=== PATIENT | female | born 1965 | race Caucasian/White ===

== ENCOUNTER 2019-09-23 14:10 | Emergency (ER) | payer OTHER ==
[~2019-09-23] VITALS: Ht 172.7 cm; Wt 86.1 kg
[2019-09-23] MEDS ORDERED: ONDANSETRON 4 MG/2 ML (SDV) Z0FRAN IVP ONE (15:30)
[2019-09-23] MEDS ORDERED: NS IV 1000 ML 1,000 ML IV SCH (15:30)
--- NOTE | 2019-09-23 15:33 | ED GI ---
General Chief Complaint: Abdominal/GI Problems Stated Complaint: NAUSEA;L UPPER QUAD PAIN Nursing Triage Note: Pt reports vomiting and diarrhea that began on . Vomiting and diarrhea lasted for approximately 24 hours. Pt reports then having LUQ pain on Monday. Pt reports not eating or drinking on Monday. Pt then tried bland diet on Monday and anything eaten caused stomach distention. Pt reports chalk colored stools and worsening LUQ pain. Pt reports being seen by Octavio at [facility] today and was given a liter of fluids and possibly phenergan. Pt arrived to ED with 18 g IV in R forearm. Sepsis Screen: No Definite Risk Source of Information: Patient Exam Limitations: No Limitations History of Present Illness Date Seen by Provider: Sep 23, 2019 Time Seen by Provider: 15:29 Initial Comments To ER with diarrhea and vomiting that began on . She was taking Wellbutrin XL for anxiety but didn't want to worsen her nausea so she stopped that cold turkey on hasn't had any since. She reports left upper quadrant pain worsened by eating or drinking anything. No fevers or chills. She had 1 day of diarrhea on that has subsided since then. She denies any reflux sensations denies any chest pain or shortness of breath. 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 Timing/Duration: 3-4 Days Severity/Quality: Moderate Location: LUQ Radiation: No Radiation Activities at Onset: None Associated Symptoms: Nausea/Vomiting Allergies and Home Medications Allergies Coded Allergies: Penicillins (Verified Allergy, Unknown, Hives, 09/23/19) Patient Home Medication List Home Medication List Reviewed: Yes Review of Systems Review of Systems Constitutional: see HPI EENTM: No Symptoms Reported Respiratory: No Symptoms Reported Cardiovascular: No Symptoms Reported Gastrointestinal: See HPI, Abdominal Pain, Nausea Genitourinary: No Symptoms Reported Musculoskeletal: no symptoms reported Skin: no symptoms reported Psychiatric/Neurological: No Symptoms Reported Endocrine: No Symptoms Reported Hematologic/Lymphatic: No Symptoms Reported Past Qpstoft-Qwvvze-Xcbnww Hx Patient Social History Alcohol Use: Occasionally Uses Recreational Drug Use: No Smoking Status: Former Smoker 2nd Hand Smoke Exposure: No Recent Foreign Travel: No Contact w/Someone Who Travel: No Recent Infectious Disease Expo: No Recent Hopitalizations: No Seasonal Allergies Seasonal Allergies: No Past Medical History Surgeries: Yes Section, Tonsillectomy Respiratory: Yes (reactive airway disease) Pulmonary Embolism Cardiac: Yes Deep Vein Thrombosis Neurological: No Genitourinary: No Gastrointestinal: No Musculoskeletal: No Endocrine: No HEENT: No Cancer: No Psychosocial: No Integumentary: No Blood Disorders: No Physical Exam Vital Signs Vital Signs - First Documented 09/23/19 14:32 Temp 36.3 Pulse 73 Resp 14 B/P (MAP) 125/90 (102) Pulse Ox 97 O2 Delivery Room Air Capillary Refill : Less Than 3 Seconds Height/Weight/BMI Height: '" Weight: lbs. oz. kg; 28.00 BMI Method: General Appearance: WD/WN, no apparent distress HEENT: PERRL/EOMI, normal ENT inspection Respiratory: normal breath sounds, no respiratory distress, no accessory muscle use Cardiovascular: regular rate, rhythm, no murmur Gastrointestinal: non tender, soft, abnormal bowel sounds (hyperactive) Extremities: normal range of motion, non-tender Neurologic/Psychiatric: alert, normal mood/affect, oriented x 3 Skin: normal color, warm/dry Progress/Results/Core Measures Results/Orders Lab Results Laboratory Tests Test 09/23/19 15:14 Range/Units White Blood Count 5.4 4.3-11.0 10^3/uL Red Blood Count 5.15 4.35-5.85 10^6/uL Hemoglobin 15.4 11.5-16.0 G/DL Hematocrit 46 35-52 % Mean Corpuscular Volume 88 80-99 FL Mean Corpuscular Hemoglobin 30 25-34 PG Mean Corpuscular Hemoglobin Concent 34 32-36 G/DL Red Cell Distribution Width 12.7 10.0-14.5 % Platelet Count 272 130-400 10^3/uL Mean Platelet Volume 9.2 7.4-10.4 FL Neutrophils (%) (Auto) 59 42-75 % Lymphocytes (%) (Auto) 31 12-44 % Monocytes (%) (Auto) 8 0-12 % Eosinophils (%) (Auto) 2 0-10 % Basophils (%) (Auto) 1 0-10 % Neutrophils # (Auto) 3.2 1.8-7.8 X 10^3 Lymphocytes # (Auto) 1.7 1.0-4.0 X 10^3 Monocytes # (Auto) 0.4 0.0-1.0 X 10^3 Eosinophils # (Auto) 0.1 0.0-0.3 10^3/uL Basophils # (Auto) 0.0 0.0-0.1 10^3/uL Sodium Level 142 135-145 MMOL/L Potassium Level 3.5 L 3.6-5.0 MMOL/L Chloride Level 105 98-107 MMOL/L Carbon Dioxide Level 25 21-32 MMOL/L Anion Gap 12 5-14 MMOL/L Blood Urea Nitrogen 16 7-18 MG/DL Creatinine 0.90 0.60-1.30 MG/DL Estimat Glomerular Filtration Rate > 60 BUN/Creatinine Ratio 18 Glucose Level 96 70-105 MG/DL Calcium Level 9.3 8.5-10.1 MG/DL Corrected Calcium 9.4 8.5-10.1 MG/DL Total Bilirubin 0.4 0.1-1.0 MG/DL Aspartate Amino Transf (AST/SGOT) 25 5-34 U/L Alanine Aminotransferase (ALT/SGPT) 24 0-55 U/L Alkaline Phosphatase 106 40-136 U/L Total Protein 7.4 6.4-8.2 GM/DL Albumin 3.9 3.2-4.5 GM/DL Lipase 11 8-78 U/L My Orders Orders - FRANCIS MOSCOSO [employer] Ondansetron Injection (Zofran Injectio (09/23/19 15:30) Ns Iv 1000 Ml (Sodium Chloride 0.9%) (09/23/19 15:30) Cbc With Automated Diff (09/23/19 15:24) Comprehensive Metabolic Panel (09/23/19 15:24) Lipase (09/23/19 15:24) Ua Culture If Indicated (09/23/19 15:24) Ed Iv/Invasive Line Start (09/23/19 15:24) Us Gallbladder 19417 (09/23/19 15:24) Ct Chest/Abdomen/Pelvis W (09/23/19 15:24) Iohexol Injection (Omnipaque 350 Mg/Ml 1 (09/23/19 16:00) Received Contrast (Hold Metformin- Contr (09/23/19 16:00) Sodium Chloride Flush (Catheter Flush Sy (09/23/19 16:00) Ns (Ivpb) (Sodium Chloride 0.9% Ivpb Bag (09/23/19 16:00) Antacid Suspension (Mylanta Suspension (09/23/19 16:00) Lidocaine 2% Viscous 15 Ml (Xylocaine Vi (09/23/19 16:00) Lorazepam Injection (Ativan Injection) (09/23/19 17:15) Bupropion Xl Tab (Non-Form) (Wellbutrin (09/23/19 17:15) Rx-Lorazepam (Rx-Ativan) (09/23/19 18:00) Medications Given in ED Current Medications Medications Dose Ordered Sig/Jaci Route Start Time Stop Time Status Last Admin Dose Admin Al Hydrox/Mg Hydrox/Simethicone 30 ml ONCE ONCE PO 09/23/19 16:00 09/23/19 16:01 DC 09/23/19 16:33 30 ML Iohexol 100 ml ONCE ONCE IV 09/23/19 16:00 09/23/19 16:01 DC 09/23/19 16:26 100 ML Lidocaine HCl 10 ml ONCE ONCE PO 09/23/19 16:00 09/23/19 16:01 DC 09/23/19 16:33 10 ML Lorazepam 1 mg ONCE PRN IVP 09/23/19 17:15 09/23/19 17:11 1 MG Ondansetron HCl 8 mg ONCE ONCE IVP 09/23/19 15:30 09/23/19 15:31 DC 09/23/19 15:32 8 MG Sodium Chloride 10 ml NEEDED PRN IV 09/23/19 16:00 09/23/19 16:26 10 ML Sodium Chloride 100 ml ONCE ONCE IV 09/23/19 16:00 09/23/19 16:01 DC 09/23/19 16:26 80 ML Vital Signs/I&O 09/23/19 14:32 Temp 36.3 Pulse 73 Resp 14 B/P (MAP) 125/90 (102) Pulse Ox 97 O2 Delivery Room Air Blood Pressure Mean: 102 Departure Communication (Admissions) I've given her a prescription for hepatobiliary scan outpatient. At 1801 she is feeling quite a bit better, this is after 1 mg of lorazepam. She is much more calm appearing. I feel like most of her symptoms probably started as a viral gastroenteritis and were compounded by sudden cessation of Wellbutrin. She needs to go home and restart that. 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 Impression Primary Impression: Nausea vomiting and diarrhea Additional Impression: wellbutrin withdrawal Disposition: 01 HOME, SELF-CARE Condition: Stable Departure-Patient Inst. Decision time for Depature: 17:50 Patient Instructions: No Instuctions Given Add. Discharge Instructions: Clear liquids only for the next 24 hours, restart her Wellbutrin tonight return to ER for any concerns. Have the HIDA scan done as soon as they can arrange, call the number on the form provided to you tomorrow to arrange this. The results will be sent to Octavio Patel. FRANCIS MOSCOSO APRN Sep 23, 2019 15:33
[2019-09-23 15:34] LABS: BASOPHILS % (AUTO) 1 % (0-10); EOSINOPHILS # (AUTO) 0.1 10^3/uL (0.0-0.3); EOSINOPHILS % (AUTO) 2 % (0-10); HEMATOCRIT 46 % (35-52); HEMOGLOBIN 15.4 G/DL (11.5-16.0); LYMPHOCYTES # (AUTO) 1.7 X 10^3 (1.0-4.0); LYMPHOCYTES % (AUTO) 31 % (12-44); MEAN CORPUSCULAR HEMOGLOBIN 30 PG (25-34); MEAN CORPUSCULAR HGB CONC 34 G/DL (32-36); MEAN CORPUSCULAR VOLUME 88 FL (80-99); MEAN PLATELET VOLUME 9.2 FL (7.4-10.4); MONOCYTES # (AUTO) 0.4 X 10^3 (0.0-1.0); MONOCYTES % (AUTO) 8 % (0-12); NEUTROPHILS # (AUTO) 3.2 X 10^3 (1.8-7.8); NEUTROPHILS % (AUTO) 59 % (42-75); PLATELET COUNT 272 10^3/uL (130-400); RED CELL DISTRIBUTION WIDTH 12.7 % (10.0-14.5); WHITE BLOOD COUNT 5.4 10^3/uL (4.3-11.0)
[2019-09-23 15:47] LABS: ALANINE AMINOTRANSFERASE 24 U/L (0-55); ALBUMIN 3.9 GM/DL (3.2-4.5); ALKALINE PHOSPHATASE 106 U/L (40-136); BILIRUBIN,TOTAL 0.4 MG/DL (0.1-1.0); BUN/CREATININE RATIO 18; CALCIUM 9.3 MG/DL (8.5-10.1); CARBON DIOXIDE 25 MMOL/L (21-32); CHLORIDE 105 MMOL/L (98-107); GFR ESTIMATED > 60; GLUCOSE 96 MG/DL (70-105); LIPASE 11 U/L (8-78); POTASSIUM 3.5 MMOL/L (3.6-5.0); SODIUM 142 MMOL/L (135-145); TOTAL PROTEIN 7.4 GM/DL (6.4-8.2)
[2019-09-23] MEDS ORDERED: IOHEXOL 350 MG/ML 100 ML (OMNIPAQUE 350) VIAL IV ONE (16:00)
[2019-09-23] MEDS ORDERED: NS 100 ML (IVPB) BAG IV ONE (16:00)
[2019-09-23] MEDS ORDERED: CATHETER FLUSH 10 ML SYR IV PRN (16:00)
[2019-09-23] MEDS ORDERED: ANTACID SUSP 30 ML UDC (MYLANTA) PO ONE (16:00)
[2019-09-23] MEDS ORDERED: HOLD METFORMIN - RECEIVED CONTRAST 20 ML VIAL IV SCH (16:00)
[2019-09-23] MEDS ORDERED: LIDOCAINE 2% VISCOUS 15 ML UDC PO ONE (16:00)
--- NOTE | 2019-09-23 16:16 | Diagnostic Imaging Report ---
INDICATION: Abdominal pain. Gallbladder sonography is performed in the routine fashion. The liver shows normal echogenicity with no focal lesions. Gallbladder is unremarkable with no stones or wall thickening. Common duct measures 3.7 mm. Pancreas is not completely seen due to overlying gas, but its visualized portions appear unremarkable. Visualized portions of the aorta and IVC are normal. Right kidney is unremarkable measuring 9.5 cm in length. There is no ascites. Portal vein is patent with hepatopetal flow. IMPRESSION: Negative gallbladder sonography. Dictated by: Dictated on workstation # [id number]
--- NOTE | 2019-09-23 16:54 | Diagnostic Imaging Report ---
INDICATION: Left-sided chest and abdominal pain and nausea. TECHNIQUE: Multiple contiguous axial images were obtained through the chest, abdomen, and pelvis after the administration of intravenous contrast. Auto Exposure Controls were utilized during the CT exam to meet ALARA standards for radiation dose reduction. CT chest findings: There are no enlarged mediastinal or hilar nodes. There are no enlarged axillary nodes or chest wall lesions. There is no pleural or pericardial fluid. Lung parenchymal windows demonstrate no pulmonary parenchymal infiltrates or masses. Bony windows in the chest show no overt abnormalities. CT abdomen and pelvis findings: The liver shows no focal lesion. Gallbladder is unremarkable. Spleen is not enlarged and shows no focal lesions. The adrenals and pancreas appear normal. The kidneys are unremarkable bilaterally. There is no retroperitoneal mass or adenopathy. There is no ascites or abnormal fluid collection. Visualized bowel loops show no overt obstruction or discrete bowel wall thickening. There are a few minimal scattered mesenteric nodes which do not appear of pathological size. There is no pelvic mass or free fluid. IMPRESSION: No acute abnormalities visualized in the chest, abdomen, or pelvis. Dictated by: Dictated on workstation # [id number]
[2019-09-23] MEDS ORDERED: buPROPion XL 150 MG (WELLBUTRIN XL) NON-FORM PO ONE (17:15)
[2019-09-23] MEDS ORDERED: LORazepam INJ 2 MG/ML (ATIVAN) VIAL IVP PRN (17:15)
--- NOTE | 2019-09-23 17:21 | NUR ---
PT REPORTS SHE WILL TAKE HOME WELLBUTRIN AT THIS TIME INSTEAD.
[2019-09-23] MEDS ORDERED: RX-LORAZEPAM (ATIVAN) 0.5 MG TAB PPK#4 PO STA (18:00)
[2019-09-23 18:14] VITALS: BP 146/81
== END 2019-09-23 18:14 | disposition home or self-care (01) ==
LOC: ER 14:12
DX: F19.239 Other psychoactive substance dependence with withdrawal, unspecified (principal); R19.7 Diarrhea, unspecified; F41.9 Anxiety disorder, unspecified; J45.909 Unspecified asthma, uncomplicated; Z88.0 Allergy status to penicillin; Z87.891 Personal history of nicotine dependence; Z90.89 Acquired absence of other organs; Z86.711 Personal history of pulmonary embolism; Z86.718 Personal history of other venous thrombosis and embolism
CPT/HCPCS: 36415; 71260; 74177; 76705; 80053; 83690; 85025; 96361; 96374; 96375

== ENCOUNTER → 2021-02-22 | Outpatient (CLI) | payer OTHER ==
--- NOTE | 2021-02-22 16:58 | Diagnostic Imaging Report ---
EXAMINATION: MRI LT UPPER EXT JOINT W/O. TECHNIQUE: Multiplanar, multisequence MR imaging of the left shoulder was performed without contrast. COMPARISON: None available. INDICATION: Left shoulder pain with history of fall. FINDINGS: Rotator cuff: Low-grade partial-thickness interstitial tear located in the central aspect of the infraspinatus. There is some associated intraosseous cystic change/ganglion formation in the posterior aspect of the humeral head associated with the rotator cuff tear. The supraspinatus is intact. Subscapularis and teres minor are also intact. No rotator cuff muscle atrophy. Glenoid labrum: No chondral labral separation or paralabral cyst. Long head of biceps: Long head of biceps is normally positioned within the bicipital groove. The intracapsular segment is intact. Bones and cartilage: Humeral head is normal in morphology without fracture or focal osseous lesion. No glenohumeral chondromalacia. The acromioclavicular joint is normal in alignment without significant degenerative change. Soft tissues: No glenohumeral joint effusion. No MRI findings to suggest adhesive capsulitis. No fluid or inflammatory like signal within the subacromial/subdeltoid space to indicate bursitis. IMPRESSION: 1. Low-grade partial-thickness interstitial tear of the infraspinatus. 2. Long head of the biceps is intact. 3. No fracture or bone contusion. Dictated by: Dictated on workstation # [id number]
--- NOTE | 2021-02-22 17:11 | Diagnostic Imaging Report ---
EXAMINATION: MRI LT LOWER EXT JOINT W/O. TECHNIQUE: Multiplanar, multisequence MR imaging of the left knee was performed without contrast. COMPARISON: None available. INDICATION: Left knee pain after fall approximately 6 months ago. FINDINGS: MENISCI Medial meniscus: There is some mild intrasubstance degeneration in the medial meniscus without superimposed tear. Lateral meniscus: Normal. LIGAMENTS ACL: Intact. PCL: Mild mucoid degeneration of the PCL without superimposed tear. MCL: MCL is intact with mild thickening along its proximal aspect and may be due to chronic partial thickness tear that is healed with scar formation. LCL: The lateral collateral ligamentous complex is intact. EXTENSOR MECHANISM Flattened trochlea suggests mild trochlear dysplasia. The tibial tubercle to trochlear groove distance is abnormal at 20 mm. CARTILAGE Medial compartment: Medial compartment articular cartilage is well preserved without focal high-grade chondromalacia. Lateral compartment: The lateral compartment articular cartilage is preserved without high-grade chondromalacia. Patellofemoral compartment: Solitary focus of full-thickness chondral fissuring in the lateral patellar facet with underlying subchondral bone marrow edema. Remainder of the lateral patellar facet has low-grade partial-thickness chondromalacia. Trochlear cartilage is preserved. BONE No fracture, stress fracture or osteonecrosis. SOFT TISSUE No knee effusion or Pritchett's cyst. IMPRESSION: 1. No meniscal tear. 2. Potential chronic partial thickness tear of the MCL which is healed 3. Imaging features suggest patellofemoral maltracking with lateralization of the tibial tubercle. 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 Dictated by: Dictated on workstation # [id number]
== END ==
LOC: RAD 15:13
PROVIDERS: ATTEND Nurse Practitioner Family
DX: M17.12 Unilateral primary osteoarthritis, left knee (principal); M75.112 Incomplete rotator cuff tear or rupture of left shoulder, not specified as traumatic
CPT/HCPCS: 73221; 73721

== ENCOUNTER 2021-06-10 09:05 | Emergency (ER) | payer OTHER ==
[~2021-06-10] VITALS: Ht 172 cm; Wt 102.0 kg
[2021-06-10] MEDS ORDERED: NS IV 1000 ML 1,000 ML IV STA (09:37)
[2021-06-10 09:45] LABS: BASOPHILS # (AUTO) 0.1 10^3/uL (0.0-0.1); BASOPHILS % (AUTO) 1 % (0-10); EOSINOPHILS # (AUTO) 0.1 10^3/uL (0.0-0.3); EOSINOPHILS % (AUTO) 1 % (0-10); HEMATOCRIT 44 % (35-52); HEMOGLOBIN 14.7 g/dL (11.5-16.0); LYMPHOCYTES # (AUTO) 1.9 10^3/uL (1.0-4.0); LYMPHOCYTES % (AUTO) 22 % (12-44); MEAN CORPUSCULAR HEMOGLOBIN 31 pg (25-34); MEAN CORPUSCULAR HGB CONC 33 g/dL (32-36); MEAN CORPUSCULAR VOLUME 94 fL (80-99); MEAN PLATELET VOLUME 9.1 fL (9.0-12.2); MONOCYTES # (AUTO) 0.6 10^3/uL (0.0-1.0); MONOCYTES % (AUTO) 7 % (0-12); NEUTROPHILS # (AUTO) 6.1 10^3/uL (1.8-7.8); NEUTROPHILS % (AUTO) 69 % (42-75); PLATELET COUNT 297 10^3/uL (130-400); WHITE BLOOD COUNT 8.8 10^3/uL (4.3-11.0)
[2021-06-10] MEDS ORDERED: ASPIRIN 81 MG CHEW (CHILDREN'S ASA) PO ONE (09:45)
[2021-06-10] MEDS ORDERED: ONDANSETRON 4 MG/2 ML (SDV) Z0FRAN IVP ONE ×2 (09:45→11:00)
[2021-06-10] MEDS: NITROGLYCERIN 0.4 MG SL TABS BTL 25'S SL PRN ×2 (09:47→10:02)
--- NOTE | 2021-06-10 09:49 | Diagnostic Imaging Report ---
INDICATION: Chest pain FINDINGS: The heart size, mediastinal configuration, and pulmonary vascularity are within normal limits. There is no pleural effusion, pneumothorax, or pneumonia. The osseous structures are unremarkable. IMPRESSION: No acute cardiopulmonary abnormality. Dictated by: Dictated on workstation # [id number]
[2021-06-10 09:52] LABS: ALBUMIN 3.7 GM/DL (3.2-4.5); CHLORIDE 104 MMOL/L (98-107); POTASSIUM 4.1 MMOL/L (3.6-5.0); SODIUM 139 MMOL/L (135-145)
[2021-06-10 09:53] LABS: CALCIUM 9.5 MG/DL (8.5-10.1)
[2021-06-10 09:54] LABS: GLUCOSE 83 MG/DL (70-105); PROTHROMBIN TIME PATIENT 13.2 SEC (12.2-14.7); TOTAL PROTEIN 6.9 GM/DL (6.4-8.2)
[2021-06-10 09:55] LABS: CARBON DIOXIDE 26 MMOL/L (21-32)
--- NOTE | 2021-06-10 09:55 | ED Chest Pain ---
General Chief Complaint: Cardiac/General Problems Stated Complaint: CP,SOB Nursing Triage Note: PT WAS HAVING A HALTER MONITOR PLACED TODAY AND BECAME WEAK, SOA, CHEST AND LEFT ARM PAIN. PT HAS BEEN HAVING THESE EPISODES WHICH IS WHY SHE WAS HAVING IT PLACED TODAY. Source: patient Exam Limitations: no limitations History of Present Illness Date Seen by Provider: Jun 10, 2021 Time Seen by Provider: 09:16 Initial Comments Here with report of chest pain, weakness, shortness of breath and left arm pain. She was here to have Holter monitor today. Has had episodes similar to this since early May (over the last 3 to 3-1/2 weeks). She has had work-up at [facility] for stroke symptoms due to near syncope episodes and variations in blood pressure. That work-up was apparently negative including CT of the head and carotid Doppler ultrasound studies. She is now having work-up for irregular rhythms. Does have history of DVT in the leg and is concerned about that. She does smoke and has uncontrolled hypertension as well as strong family history of cardiac disease. She reports 6 to 9 years ago that she had heart catheterization that was negative and that was her second negative test. Has high cholesterol that she is not treating. Does have nausea currently. Notes that she has had some intermittent night sweats over time and unsure if that is related to an illness or menopause. Current episode has been going on since this morning over the last 2 to 3 hours. She is vaccinated for COVID-19. Timing/Duration: 1-3 hours, changing over time Severity/Quality: aching Location: central (Left-sided) Radiation: arms (Left), shoulders (Left) Activities at Onset: rest Prior CP/Workup: cardiac cath Modifying Factors: improves with rest, improves with other (Otherwise no exacerbating or relieving factors) ASA po SNUBBER: No NTG SL SNUBBER: No Associated Symptoms: No abdominal pain, No back pain, No dizziness, No edema; fatigue; No headache, No heartburn; nausea/vomiting; No rash, No shortness of breath; syncope (Near syncope with some episodes), weakness (With some episodes) Allergies and Home Medications Allergies Coded Allergies: Penicillins (Verified Allergy, Unknown, Hives, 09/23/19) Patient Home Medication List Home Medication List Reviewed: Yes Review of Systems Review of Systems Constitutional: see HPI; No chills, No fever EENTM: No Symptoms Reported Respiratory: Denies Cough, Denies SOA at Rest Cardiovascular: See HPI, Chest Pain; Denies Edema; Irregular Heart Rate, Lightheadedness Gastrointestinal: See HPI; Denies Abdominal Pain, Denies Diarrhea Genitourinary: No Symptoms Reported Musculoskeletal: muscle pain; No neck pain Skin: No change in color, No lesions Psychiatric/Neurological: See HPI All Other Systems Reviewed Negative Unless Noted: Yes Past Curcvbk-Dnorua-Lbuuox Hx Patient Social History Tobacco Use?: Yes Smoking Status: Current Everyday Smoker Substance use?: No Alcohol Use?: Yes Alcohol Frequency: Rarely Immunizations Up To Date Second COVID19 Vaccination Anurag: UNKNOWN COVID19 Vaccine Silicator: MODENRAlvaro Seasonal Allergies Seasonal Allergies: No Past Medical History Surgeries: Yes Section, Tonsillectomy Respiratory: Yes (reactive airway disease) Pulmonary Embolism Cardiac: Yes Deep Vein Thrombosis Neurological: No Genitourinary: No Gastrointestinal: No Musculoskeletal: No Endocrine: No HEENT: No Cancer: No Psychosocial: No Integumentary: No Blood Disorders: No Family Medical History Reviewed Nursing Family Hx Heart Disease Physical Exam Vital Signs Vital Signs - First Documented 06/10/21 09:10 Temp 36.2 Pulse 79 Resp 16 B/P (MAP) 152/103 (119) Pulse Ox 100 O2 Delivery Room Air Capillary Refill : Less Than 3 Seconds Height, Weight, BMI Height: '" Weight: lbs. oz. kg; 34.00 BMI Method: General Appearance: No Apparent Distress, WD/WN HEENT: PERRL/EOMI, Pharynx Normal Neck: Non Tender, Supple Respiratory: Chest Non Tender, Lungs Clear, Normal Breath Sounds Cardiovascular: Regular Rate, Rhythm, No Murmur Gastrointestinal: Non Tender, Soft Extremity: Normal Range of Motion, Non Tender Neurologic/Psychiatric: Alert, Oriented x3 Skin: Normal Color, Warm/Dry Progress/Results/Core Measures Results/Orders Lab Results Laboratory Tests Test 06/10/21 09:26 06/10/21 12:12 Range/Units White Blood Count 8.8 4.3-11.0 10^3/uL Red Blood Count 4.72 3.80-5.11 10^6/uL Hemoglobin 14.7 11.5-16.0 g/dL Hematocrit 44 35-52 % Mean Corpuscular Volume 94 80-99 fL Mean Corpuscular Hemoglobin 31 25-34 pg Mean Corpuscular Hemoglobin Concent 33 32-36 g/dL Red Cell Distribution Width 12.4 10.0-14.5 % Platelet Count 297 130-400 10^3/uL Mean Platelet Volume 9.1 9.0-12.2 fL Immature Granulocyte % (Auto) 0 % Neutrophils (%) (Auto) 69 42-75 % Lymphocytes (%) (Auto) 22 12-44 % Monocytes (%) (Auto) 7 0-12 % Eosinophils (%) (Auto) 1 0-10 % Basophils (%) (Auto) 1 0-10 % Neutrophils # (Auto) 6.1 1.8-7.8 10^3/uL Lymphocytes # (Auto) 1.9 1.0-4.0 10^3/uL Monocytes # (Auto) 0.6 0.0-1.0 10^3/uL Eosinophils # (Auto) 0.1 0.0-0.3 10^3/uL Basophils # (Auto) 0.1 0.0-0.1 10^3/uL Immature Granulocyte # (Auto) 0.0 0.0-0.1 10^3/uL Prothrombin Time 13.2 12.2-14.7 SEC INR Comment 1.0 0.8-1.4 Activated Partial Thromboplast Time 34 24-35 SEC D-Dimer 0.34 0.00-0.49 UG/ML Sodium Level 139 135-145 MMOL/L Potassium Level 4.1 3.6-5.0 MMOL/L Chloride Level 104 98-107 MMOL/L Carbon Dioxide Level 26 21-32 MMOL/L Anion Gap 9 5-14 MMOL/L Blood Urea Nitrogen 13 7-18 MG/DL Creatinine 0.76 0.60-1.30 MG/DL Estimat Glomerular Filtration Rate 79 BUN/Creatinine Ratio 17 Glucose Level 83 70-105 MG/DL Calcium Level 9.5 8.5-10.1 MG/DL Corrected Calcium 9.7 8.5-10.1 MG/DL Magnesium Level 2.0 1.6-2.4 MG/DL Total Bilirubin 0.3 0.1-1.0 MG/DL Aspartate Amino Transf (AST/SGOT) 20 5-34 U/L Alanine Aminotransferase (ALT/SGPT) 21 0-55 U/L Alkaline Phosphatase 108 40-136 U/L Myoglobin 24.6 10.0-92.0 NG/ML Troponin I < 0.028 < 0.028 <0.028 NG/ML Total Protein 6.9 6.4-8.2 GM/DL Albumin 3.7 3.2-4.5 GM/DL Lipase 38 8-78 U/L My Orders Orders - MARLENE MOY MD Cbc With Automated Diff (06/10/21 09:37) Magnesium (06/10/21 09:37) Chest 1 View, Ap/Pa Only (06/10/21 09:37) Ekg Tracing (06/10/21 09:37) Comprehensive Metabolic Panel (06/10/21 09:37) Myoglobin Serum (06/10/21 09:37) Protime With Inr (06/10/21 09:37) Partial Thromboplastin Time (06/10/21 09:37) O2 (06/10/21 09:37) Monitor-Rhythm Ecg Trace Only (06/10/21 09:37) Lipid Panel (06/11/21 06:00) Ed Iv/Invasive Line Start (06/10/21 09:37) Lipase (06/10/21 09:37) Fibrin Degradation Products (06/10/21 09:37) Nitroglycerin 0.4 Mg Btl 25's (Nitrostat (06/10/21 09:45) Aspirin Chewable Tablet (Baby Aspirin Ch (06/10/21 09:45) Ondansetron Injection (Zofran Injectio (06/10/21 09:45) Ns Iv 1000 Ml (Sodium Chloride 0.9%) (06/10/21 09:37) Troponin I (06/10/21 09:26) Ct Angio Chest W (06/10/21 10:42) Iohexol Injection (Omnipaque 350 Mg/Ml 1 (06/10/21 10:45) Received Contrast (Hold Metformin- Contr (06/10/21 10:45) Sodium Chloride Flush (Catheter Flush Sy (06/10/21 10:45) Ns (Ivpb) (Sodium Chloride 0.9% Ivpb Bag (06/10/21 10:45) Ketorolac Injection (Toradol Injection) (06/10/21 10:55) Ondansetron Injection (Zofran Injectio (06/10/21 11:00) Pantoprazole Injection (Protonix Injecti (06/10/21 11:45) Metoprolol Tartrate (Ir) Tab (Lopressor (06/10/21 11:45) Troponin I (06/10/21 11:45) Medications Given in ED Current Medications Medications Dose Ordered Sig/Jaci Route Start Time Stop Time Status Last Admin Dose Admin Aspirin 324 mg ONCE ONCE PO 06/10/21 09:45 06/10/21 09:46 DC 06/10/21 09:43 324 MG Iohexol 100 ml ONCE ONCE IV 06/10/21 10:45 06/10/21 10:46 DC 06/10/21 11:15 85 ML Metoprolol Tartrate 50 mg ONCE ONCE PO 06/10/21 11:45 06/10/21 11:46 DC 06/10/21 12:26 50 MG Nitroglycerin 0.4 mg UD PRN SL 06/10/21 09:45 06/10/21 10:02 0.4 MG Ondansetron HCl 4 mg ONCE ONCE IVP 06/10/21 09:45 06/10/21 09:46 DC 06/10/21 09:43 4 MG Ondansetron HCl 4 mg ONCE ONCE IVP 06/10/21 11:00 06/10/21 11:01 DC 06/10/21 11:04 4 MG Pantoprazole 40 mg ONCE ONCE IV 06/10/21 11:45 06/10/21 11:46 DC 06/10/21 12:26 40 MG Sodium Chloride 10 ml NEEDED PRN IV 06/10/21 10:45 06/10/21 11:15 10 ML Sodium Chloride 100 ml ONCE ONCE IV 06/10/21 10:45 06/10/21 10:46 DC 06/10/21 11:15 80 ML Vital Signs/I&O 06/10/21 09:10 Temp 36.2 Pulse 79 Resp 16 B/P (MAP) 152/103 (119) Pulse Ox 100 O2 Delivery Room Air Blood Pressure Mean: 119 Progress Progress Note : Progress Note Seen and evaluated. Chest pain protocol initiated and we will add D-dimer given her history of blood clots. ASA 324 mg p.o., nitroglycerin sublingual, Zofran 4 mg IV and normal saline 1 L bolus ordered. Monitor patient. 1042: We will get CT angiogram of the chest given her history. D-dimer is negative but patient still had some intermittent pain. This will allow us to rule out pulmonary embolism as well as any other functional problems. 1100: Toradol 30 mg IV and Z ofran 4 mg IV ordered for nausea and pain. 1150: We have initiated omeprazole 40 mg IV and metoprolol 50 mg p.o. Anticipate repeat troponin. CT angiogram is negative for emboli or other pathology. 1305: Repeat troponin is negative. Patient is feeling better. Blood pressures 140s over 90s with heart rate in the 60s. She has a Holter monitor that she is to continue for 30 days. She has follow-up with her planning lead on Monday, June 14 and in [place]. Overall stable and improved. At this point, safe for discharge home. Discharged home with return precautions. Patient verbalized understanding instructions and agreement with plan. I did dependency counselor her to continue her medications for hypertension, quit smoking and keep appointment with her [facility] ologist. I will send a copy of her chart to the [facility] system as well. Initial ECG Impression Date: Jun 10, 2021 Initial ECG Impression Time: 09:16 Initial ECG Rate: 77 Initial ECG Rhythm: Normal Sinus Comment Sinus rhythm with left atrial abnormality. Normal axis. No evidence of ST elevation PA. No previous available for comparison. Interpreted by me. Diagnostic Imaging Diagonstic Imaging: Xray Plain Films/CT/US/NM/MRI: chest Comments [facility]. [place], [place] NAME: KRYSTEN NAVA [facility] REC#: [id number] PT STATUS: REG ER : 1965 PHYSICIAN: MARLENE MOY MD ADMIT DATE: 06/10/21/ER Draft Date of Exam:06/10/21 CHEST 1 VIEW, AP/PA ONLY INDICATION: Chest pain FINDINGS: The heart size, mediastinal configuration, and pulmonary vascularity are within normal limits. There is no pleural effusion, pneumothorax, or pneumonia. The osseous structures are unremarkable. IMPRESSION: No acute cardiopulmonary abnormality. Dictated on workstation # [id number] Dict: 06/10/21 0948 Trans: 06/10/21 0949 [facility] [id number] Interpreted by: LUIS A TREVINO MD Electronically signed by: Omi Imaging: CT Plain Films/CT/US/NM/MRI: chest Comments [facility], [place] NAME: KRYSTEN NAVA [facility] REC#: [id number] PT STATUS: REG ER : 1965 PHYSICIAN: MARLENE MOY MD ADMIT DATE: 06/10/21/ER Draft Date of Exam:06/10/21 CT ANGIO CHEST W EXAMINATION: CT angiography of the chest. TECHNIQUE: Contrast enhanced thin section helical images were obtained through the chest with intravenous contrast timed for the optimal opacification of the arterial structures per CTA protocol. Post-processing, reconstructions and interpretation of angiographic images of the vessels was performed. 3D MIP reconstructions were performed and reviewed. All CT scans use one or more of the following dose optimizing techniques: automated exposure control, MA and/or KvP adjustment based on a patient size and exam type, or iterative reconstruction. HISTORY: Short of breath. COMPARISON: None available. FINDINGS: There is no pulmonary embolism. There is no edema or pneumonia. No pleural effusion. No pneumothorax. No suspicious nodules. There is no axillary or supraclavicular lymphadenopathy. There is no mediastinal lymphadenopathy. Heart size is normal. There are no coronary artery calcifications. No pericardial effusion. Aorta is normal in caliber. Limited views of the upper abdomen are unremarkable. There are no suspicious osseous lesions. IMPRESSION: 1. No pulmonary embolism, clear lungs. Dictated on workstation # [id number] Dict: 06/10/21 1127 Trans: 06/10/21 1132 [id number] Interpreted by: ADEEL JACINTO MD Electronically signed by: Departure Impression Primary Impression: Chest pain Qualified Codes: R07.9 - Chest pain, unspecified Additional Impression: Hypertension Qualified Codes: I10 - Essential (primary) hypertension Disposition: 01 HOME, SELF-CARE Condition: Improved Departure-Patient Inst. Decision time for Depature: 13:08 Referrals: NO,LOCAL PHYSICIAN (PCP) Primary Care Physician APOLINAR FRANZ APRN (Family) Primary Care Physician Patient Instructions: Chest Pain (DC), High Blood Pressure in Adults Add. Discharge Instructions: All discharge instructions reviewed with patient and/or family. Voiced understanding. Continue your blood pressure medicines. You should stop smoking. Keep arturo ointment with your planning lead on Monday as scheduled. Follow-up with your doctor for recheck and further evaluation. Return for worse pain, fever, vomiting, weakness, breathing problems or other concerns as needed. Work/School Note: Work Release Form Date Seen in the Emergency Department: Jun 10, 2021 Return to Work: Jun 12, 2021 Restrictions: No Restrictions Copy Copies To 1: BRAIN DONG TIMOTHY D MD Jun 10, 2021 09:55
[2021-06-10 09:56] LABS: BILIRUBIN,TOTAL 0.3 MG/DL (0.1-1.0)
[2021-06-10 09:58] LABS: ALKALINE PHOSPHATASE 108 U/L (40-136); CREATININE SERUM 0.76 MG/DL (0.60-1.30); GFR ESTIMATED 79
[2021-06-10 09:59] LABS: BUN/CREATININE RATIO 17
[2021-06-10 10:01] LABS: ALANINE AMINOTRANSFERASE 21 U/L (0-55)
[2021-06-10 10:02] LABS: LIPASE 38 U/L (8-78)
[2021-06-10] MEDS ORDERED: IOHEXOL 350 MG/ML 100 ML (OMNIPAQUE 350) VIAL IV ONE (10:45)
[2021-06-10] MEDS ORDERED: HOLD METFORMIN - RECEIVED CONTRAST 20 ML VIAL IV SCH (10:45)
[2021-06-10] MEDS ORDERED: CATHETER FLUSH 10 ML SYR IV PRN (10:45)
[2021-06-10] MEDS ORDERED: NS 100 ML (IVPB) BAG IV ONE (10:45)
[2021-06-10] MEDS ORDERED: KETOROLAC 30 MG/ML VIAL IVP STA (10:55)
--- NOTE | 2021-06-10 11:32 | Diagnostic Imaging Report ---
EXAMINATION: CT angiography of the chest. TECHNIQUE: Contrast enhanced thin section helical images were obtained through the chest with intravenous contrast timed for the optimal opacification of the arterial structures per CTA protocol. Post-processing, reconstructions and interpretation of angiographic images of the vessels was performed. 3D MIP reconstructions were performed and reviewed. All CT scans use one or more of the following dose optimizing techniques: automated exposure control, MA and/or KvP adjustment based on a patient size and exam type, or iterative reconstruction. HISTORY: Short of breath. COMPARISON: None available. FINDINGS: There is no pulmonary embolism. There is no edema or pneumonia. No pleural effusion. No pneumothorax. No suspicious nodules. There is no axillary or supraclavicular lymphadenopathy. There is no mediastinal lymphadenopathy. Heart size is normal. There are no coronary artery calcifications. No pericardial effusion. Aorta is normal in caliber. Limited views of the upper abdomen are unremarkable. There are no suspicious osseous lesions. IMPRESSION: 1. No pulmonary embolism, clear lungs. Dictated by: Dictated on workstation # [id number]
[2021-06-10] MEDS ORDERED: PANTOPRAZOLE 40 MG (PROTONIX) VIAL IV ONE (11:45)
[2021-06-10] MEDS ORDERED: meTOprolol TARTRATE 50 MG (LOPRESSOR) TAB PO ONE (11:45)
[2021-06-10 13:14] VITALS: BP 151/86
== END 2021-06-10 13:14 | disposition home or self-care (01) ==
LOC: EDUNIT# 09:05 → ER 09:07
DX: R07.89 Other chest pain (principal); I10 Essential (primary) hypertension; J45.909 Unspecified asthma, uncomplicated; F17.200 Nicotine dependence, unspecified, uncomplicated
CPT/HCPCS: 36415; 71045; 71275; 80053; 83690; 83735; 83874; 84484; 85025; 85379; 85610; 85730; 93005; 93041; 96374; 96375; 96376

== ENCOUNTER → 2021-06-10 | Outpatient (CLI) | payer OTHER | LOC: CARD 08:00 | PROVIDERS: ATTEND Nurse Practitioner | DX: Z53.9 Procedure and treatment not carried out, unspecified reason (principal) ==

== ENCOUNTER → 2022-02-28 | Outpatient (CLI) | payer OTHER ==
[2022-02-28 08:45] LABS: BASOPHILS # (AUTO) 0.1 10^3/uL (0.0-0.1); BASOPHILS % (AUTO) 1 % (0-10); EOSINOPHILS # (AUTO) 0.2 10^3/uL (0.0-0.3); EOSINOPHILS % (AUTO) 2 % (0-10); HEMATOCRIT 47 % (35-52); HEMOGLOBIN 15.3 g/dL (11.5-16.0); LYMPHOCYTES # (AUTO) 2.7 10^3/uL (1.0-4.0); LYMPHOCYTES % (AUTO) 29 % (12-44); MEAN CORPUSCULAR HEMOGLOBIN 30 pg (25-34); MEAN CORPUSCULAR HGB CONC 33 g/dL (32-36); MEAN CORPUSCULAR VOLUME 91 fL (80-99); MEAN PLATELET VOLUME 8.5 fL (9.0-12.2); MONOCYTES # (AUTO) 0.6 10^3/uL (0.0-1.0); MONOCYTES % (AUTO) 6 % (0-12); NEUTROPHILS # (AUTO) 5.8 10^3/uL (1.8-7.8); NEUTROPHILS % (AUTO) 62 % (42-75); PLATELET COUNT 294 10^3/uL (130-400); WHITE BLOOD COUNT 9.4 10^3/uL (4.3-11.0)
--- NOTE | 2022-02-28 08:54 | Diagnostic Imaging Report ---
HISTORY: Right chest wall pain and abnormal breath sounds. COMPARISON: CT from 06/10/2021. Chest x-ray from 06/10/2021. TECHNIQUE: Two views of the chest. FINDINGS: The lung volumes are large. No consolidation is seen. There is no pleural effusion or pneumothorax. The cardiac silhouette is normal in size. IMPRESSION: Large lung volumes with no acute pulmonary abnormality seen. Dictated by: Dictated on workstation # [id number]
[2022-02-28 09:16] LABS: BUN/CREATININE RATIO 20; CALCIUM 9.5 MG/DL (8.5-10.1); CARBON DIOXIDE 28 MMOL/L (21-32); CHLORIDE 101 MMOL/L (98-107); GFR ESTIMATED 75; GLUCOSE 104 MG/DL (70-105); MAGNESIUM 2.1 MG/DL (1.6-2.4); POTASSIUM 4.1 MMOL/L (3.6-5.0); SODIUM 139 MMOL/L (135-145)
[2022-02-28 09:17] LABS: ALANINE AMINOTRANSFERASE 16 U/L (0-55); ALBUMIN 4.1 GM/DL (3.2-4.5); ALKALINE PHOSPHATASE 131 U/L (40-136); BILIRUBIN,TOTAL 0.3 MG/DL (0.1-1.0); TOTAL PROTEIN 7.2 GM/DL (6.4-8.2)
== END ==
LOC: RAD FS 08:24
PROVIDERS: ATTEND Nurse Practitioner Family
DX: R07.89 Other chest pain (principal); R68.83 Chills (without fever); R11.2 Nausea with vomiting, unspecified; R53.83 Other fatigue; R09.89 Other specified symptoms and signs involving the circulatory and respiratory systems
CPT/HCPCS: 36415; 71046; 80053; 83735; 84484; 85025; 85652; 86141